=== PATIENT | female | born 1980 | race Caucasian/White ===

== ENCOUNTER 2016-10-25 10:32 | Emergency (ER) | payer OTHER | END 2016-10-25 11:11 | disposition home or self-care (01) | LOC: ED 10:32 | DX: G89.29 Other chronic pain (principal); M25.511 Pain in right shoulder; F41.9 Anxiety disorder, unspecified; F17.210 Nicotine dependence, cigarettes, uncomplicated; Z79.899 Other long term (current) drug therapy; Z88.5 Allergy status to narcotic agent ==